=== PATIENT | male | born 1950 | race Caucasian/White ===

== ENCOUNTER 2019-06-03 13:19 | Inpatient (IN) | payer MEDICARE ==
[2019-06-03] MEDS ORDERED: Acetaminophen 325 MG Tab PO PRN (13:53)
[2019-06-03] MEDS ORDERED: Polyethylene Glycol 3350 Powder 17 GM Packet PO PRN (13:53)
[2019-06-03] MEDS ORDERED: Ondansetron 4 MG/2 ML SDV IV PRN (13:53)
[2019-06-03] MEDS ORDERED: 50% Dextrose in Water 50 ML Syringe IV PRN (13:53)
[2019-06-03] MEDS ORDERED: Glucose Gel 15 GM in 37.5 GM Tube PO PRN (13:53)
--- NOTE | 2019-06-03 14:02 | PCM.HP.2 ---
H&P History of Present Illness - General Date of Service: 06/03/19 Admit Problem/Dx: Admission Diagnosis/Problem Admission Diagnosis/Problem Viral URI/Asthma Source of Information: Patient, Family, Provider, RN Notes Reviewed History Limitations: Reports: No Limitations - History of Present Illness Initial Comments - Free Text/Narative: Mr. Guardado is a 69-year-old gentleman who was admitted as a direct admission from the clinic with shortness of breath, secondary to a viral upper respiratory tract infection with asthma exacerbation. He has not felt well over the past week with progressive increase in shortness of breath and nonproductive cough. He has had no fevers, chills, or sweats. Symptoms are actually modestly improved over the past 2 days. He does report expiratory wheezing and denies any previous history of significant pulmonary disease. During this period of time he is also experienced increase in peripheral edema. History of chronic kidney disease stage IV, review of records show an increase in creatinine from 2.6-3.4 over the past 6 months. - Related Data Allergies/Adverse Reactions: Allergies Allergy/AdvReac Type Severity Reaction Status Date / Time No Known Allergies Allergy Verified 11/02/14 09:25 Home Medications: Home Meds Hydrochlorothiazide 25 mg PO TID 11/02/14 [History] Insulin Glarg,Human.Rec.Analog [Lantus Solostar] 48 units SUBCUT BEDTIME [History] Levothyroxine 200 mcg PO DAILY 11/02/14 [History] Lisinopril 40 mg PO DAILY 11/02/14 [History] Minocycline [Minocin] 100 mg PO DAILY 11/02/14 [History] allopurinoL [Allopurinol] 300 mg PO DAILY 11/02/14 [History] Past Medical History HEENT History: Reports: Cataract, Impaired Vision Cardiovascular History: Reports: Hypertension Gastrointestinal History: Reports: Other (See Below) Other Gastrointestinal History: small bowel resection Endocrine/Metabolic History: Reports: Diabetes, Type II Oncologic (Cancer) History: Reports: Other (See Below) Other Oncologic History: benign melanoma Dermatologic History: Reports: Benign Melanoma - Infectious Disease History Infectious Disease History: Reports: Chicken Pox, Measles, Mumps - Past Surgical History HEENT Surgical History: Reports: Cataract Surgery GI Surgical History: Reports: Hernia Repair/Other Social & Family History - Tobacco Use Smoking Status *Q: Never Smoker - Caffeine Use Caffeine Use: Reports: Coffee - Recreational Drug Use Recreational Drug Use: No H&P Review of Systems - Review of Systems: Review Of Systems: See Below General: Reports: Malaise, Weakness. Denies: Fever, Chills HEENT: Reports: No Symptoms Pulmonary: Reports: Shortness of Breath, Wheezing, Cough. Denies: Pleuritic Chest Pain, Sputum, Hemoptysis Cardiovascular: Reports: Dyspnea on Exertion, Edema. Denies: Chest Pain, Palpitations, Orthopnea, PND, Lightheadedness Gastrointestinal: Reports: No Symptoms Genitourinary: Reports: No Symptoms Musculoskeletal: Reports: No Symptoms Skin: Reports: No Symptoms Psychiatric: Reports: No Symptoms Neurological: Reports: No Symptoms Hematologic/Lymphatic: Reports: No Symptoms Immunologic: Reports: No Symptoms Exam - Exam Exam: See Below - Vital Signs Weight: 221 lb - Exam Quality Assessment: DVT Prophylaxis General: Alert, Oriented, Cooperative, Mild Distress HEENT: Conjunctiva Clear, Hearing Intact, Mucosa Moist & [place], Normal Nasal Septum, Posterior Pharynx Clear, Pupils Equal Neck: Supple, Trachea Midline, +2 Carotid Pulse wo Bruit Lungs: Normal Respiratory Effort, Wheezing. No: Rales, Rhonchi, Rub Cardiovascular: Regular Rate, Regular Rhythm, Normal S1, Normal S2. No: Systolic Murmur, Diastolic Murmur GI/Abdominal Exam: Soft, Non-Tender, No Organomegaly, No Distention Back Exam: Normal Inspection, Full Range of Motion Extremities: Non-Tender, Pedal Edema Skin: Warm, Dry, Intact Neurological: Cranial Nerves Intact, Strength Equal Bilateral, Normal Speech, Normal Tone, Sensation Intact. No: Focal Deficit Neuro Extensive - Mental Status: Alert, Oriented x3, Normal Mood/Affect, Normal Cognition, Memory Intact *Q Meaningful Use (ADM) - VTE Risk Assess *Q Each Risk Factor Represents 1 Point: Obesity ( BMI > 25 kg/m2) Total Score 1 Point Risk Factors: 1 Each Risk Factor Represents 2 Points: Age 60 - 74 Years Total Score 2 Point Risk Factors: 2 Each Risk Factor Represents 3 Points: None Total Score 3 Point Risk Factors: 0 Each Risk Factor Represents 5 Points: None Total Score 5 Point Risk Factors: 0 Venous Thromboembolism Risk Factor Score *Q: 3 Problem List Initiated/Reviewed/Updated: Yes Orders Last 24hrs: Active Orders 24 hr Category Date Time Status Patient Status [ADT] Routine ADT 06/03/19 13:53 Ordered Ambulate [RC] QID Care 06/03/19 13:53 Ordered Blood Glucose Check, Bedside [RC] QIDACANDBED Care 06/03/19 13:53 Ordered Cardiac Monitoring [RC] .As Directed Care 06/03/19 13:56 Ordered Communication Order [RC] STAT Care 06/03/19 13:53 Ordered Diabetes Education [RC] Click to Edit Care 06/03/19 13:53 Ordered Height and Weight [RC] DAILY Care 06/03/19 13:53 Ordered Intake and Output [RC] QSHIFT Care 06/03/19 13:53 Ordered Notify Provider Vital Signs [RC] ASDIRECTED Care 06/03/19 13:53 Ordered Notify Provider [RC] PRN Care 06/03/19 13:53 Ordered Oxygen Therapy [RC] PRN Care 06/03/19 13:53 Ordered Up to Chair [RC] QID Care 06/03/19 13:53 Ordered VTE/DVT Education [RC] Per Unit Routine Care 06/03/19 13:53 Ordered Vital Signs [RC] Q4H Care 06/03/19 13:53 Ordered 2 Gram Sodium Diet [DIET] Diet 06/03/19 Lunch Ordered Consistent Carbohydrate Diet [DIET] Diet 06/03/19 Lunch Ordered Echo Comp wo Cont [US] Urgent Exams 06/04/19 08:00 Ordered BASIC METABOLIC PANEL,BMP [CHEM] AM Lab 06/04/19 05:11 Ordered CBC WITH AUTO DIFF [HEME] AM Lab 06/04/19 05:11 Ordered GLUCOSE POC LAB TO COLLECT [POC] QIDACANDBED Lab 06/03/19 16:30 Ordered GLUCOSE POC LAB TO COLLECT [POC] QIDACANDBED Lab 06/03/19 21:00 Ordered GLUCOSE POC LAB TO COLLECT [POC] QIDACANDBED Lab 06/04/19 07:30 Ordered GLUCOSE POC LAB TO COLLECT [POC] QIDACANDBED Lab 06/04/19 11:30 Ordered GLUCOSE POC LAB TO COLLECT [POC] QIDACANDBED Lab 06/04/19 16:30 Ordered GLUCOSE POC LAB TO COLLECT [POC] QIDACANDBED Lab 06/04/19 21:00 Ordered GLUCOSE POC LAB TO COLLECT [POC] QIDACANDBED Lab 06/05/19 07:30 Ordered GLUCOSE POC LAB TO COLLECT [POC] QIDACANDBED Lab 06/05/19 11:30 Ordered GLUCOSE POC LAB TO COLLECT [POC] QIDACANDBED Lab 06/05/19 16:30 Ordered GLUCOSE POC LAB TO COLLECT [POC] QIDACANDBED Lab 06/05/19 21:00 Ordered GLUCOSE POC LAB TO COLLECT [POC] QIDACANDBED Lab 06/06/19 07:30 Ordered GLUCOSE POC LAB TO COLLECT [POC] QIDACANDBED Lab 06/06/19 11:30 Ordered GLUCOSE POC LAB TO COLLECT [POC] QIDACANDBED Lab 06/06/19 16:30 Ordered GLUCOSE POC LAB TO COLLECT [POC] QIDACANDBED Lab 06/06/19 21:00 Ordered GLUCOSE POC LAB TO COLLECT [POC] QIDACANDBED Lab 06/07/19 07:30 Ordered GLUCOSE POC LAB TO COLLECT [POC] QIDACANDBED Lab 06/07/19 11:30 Ordered GLUCOSE POC LAB TO COLLECT [POC] QIDACANDBED Lab 06/07/19 16:30 Ordered GLUCOSE POC LAB TO COLLECT [POC] QIDACANDBED Lab 06/07/19 21:00 Ordered GLUCOSE POC LAB TO COLLECT [POC] QIDACANDBED Lab 06/08/19 07:30 Ordered GLUCOSE POC LAB TO COLLECT [POC] QIDACANDBED Lab 06/08/19 11:30 Ordered MAGNESIUM [CHEM] AM Lab 06/04/19 05:11 Ordered Acetaminophen [Tylenol] Med 06/03/19 13:53 Ordered 650 mg PO Q4H PRN Bumetanide [Bumex] Med 06/03/19 13:58 Once 4 mg IVPUSH ONETIME ONE Dextrose 50% in Water Med 06/03/19 13:53 Ordered 50 ml IV ONETIME PRN Dextrose [Glutose 15] Med 06/03/19 13:53 Ordered 15 gm PO ONETIME PRN Enoxaparin [Lovenox] Med 06/03/19 14:00 Ordered 30 mg SUBCUT DAILY Insulin Lispro [HumaLOG] Med 06/03/19 17:00 Ordered See Protocol SUBCUT QIDACANDBED Ondansetron [Zofran] Med 06/03/19 13:53 Ordered 4 mg IV Q4H PRN Polyethylene Glycol 3350 [MiraLAX] Med 06/03/19 13:53 Ordered 17 gm PO DAILY PRN Sodium Chloride 0.9% [Saline Flush] Med 06/03/19 13:53 Ordered 10 ml FLUSH ASDIRECTED PRN Saline Lock Insert [OM.PC] Routine Oth 06/03/19 13:53 Ordered Resuscitation Status Routine Resus Stat 06/03/19 13:53 Ordered Medication Orders Acetaminophen (Tylenol) 650 mg PO Q4H PRN PRN Reason: Pain (Mild 1-3)/fever Bumetanide (Bumex) 4 mg IVPUSH ONETIME ONE Stop: 06/03/19 13:59 Dextrose (Glutose 15) 15 gm PO ONETIME PRN PRN Reason: Hypoglycemia Dextrose/Water (Dextrose 50% In Water) 50 ml IV ONETIME PRN PRN Reason: Hypoglycemia Enoxaparin Sodium (Lovenox) 30 mg SUBCUT DAILY INNA Insulin Human Lispro (Humalog) 0 unit SUBCUT QIDACANDBED INNA; Protocol Ondansetron HCl (Zofran) 4 mg IV Q4H PRN PRN Reason: Nausea/Vomiting Polyethylene Glycol (Miralax) 17 gm PO DAILY PRN PRN Reason: Constipation Sodium Chloride (Saline Flush) 10 ml FLUSH ASDIRECTED PRN PRN Reason: Keep Vein Open Assessment/Plan Comment:: ASSESSMENT AND PLAN VIRAL UPPER RESPIRATORY TRACT INFECTION/ASTHMA EXACERBATION-previous history of reactive airway disease. 1 week history of progressive shortness of breath associated with dry nonproductive cough. Noted to have significant expiratory wheezing on examination. Indication for antibiotic therapy at the present time. -Supplemental oxygen as needed -Nebulized albuterol and DuoNebs -Solu-Medrol 40 mg every 8 hours PERIPHERAL EDEMA-likely related to his chronic kidney disease as well as increased sodium intake -2 g sodium diet -Bumex 4 mg IV now, reassess in a.m. CHRONIC KIDNEY DISEASE STAGE IV-did have an increase in creatinine over the past 6 months, current GFR is 19 -Closely monitor urine output and renal function during hospitalization TYPE 2 DIABETES MELLITUS -Continue usual dose of long-acting insulin -4 times daily glucometers -Moderate dose sliding scale Humalog MAINTENANCE ISSUES -DVT prophylaxis; Lovenox 30 mg subcu daily -GI prophylaxis; not indicated -Paige catheter; not indicated -Nutrition; 2 g sodium diet, consistent carb diet -Nicotine dependence; not required CODE STATUS-FULL CODE ADMISSION STATUS-patient will be admitted to inpatient status, expect at least a 2 night hospital stay for evaluation and management of problems as outlined above. At the time of this admission I do not reasonably expected evaluation and management of this problem will require more than a 96 hour hospital stay. DISPOSITION-anticipate discharge to home after the hospital stay. PRIMARY CARE PROVIDER-Dr. Caballero - Mortality Measure Prognosis:: Good
[2019-06-03] MEDS: Sodium Chloride 0.9% 10 ML Syringe FLUSH PRN ×2 (14:17→16:05)
[2019-06-03] MEDS: Enoxaparin 30 MG/0.3 ML Syringe SUBCUT SCH (14:19)
[2019-06-03] MEDS ORDERED: Bumetanide 1 MG/4 ML MDV IVPUSH ONE (14:30)
[2019-06-03] MEDS ORDERED: Albuterol 0.083% 2.5 MG/3 ML Neb Soln NEB PRN (14:46)
[2019-06-03] MEDS: Albuterol/Ipratropium 3.0-0.5 MG/3 ML Neb Soln NEB SCH ×2 (15:13→20:12)
[2019-06-03] MEDS: cloNIDine 0.1 MG Tab PO SCH ×2 (16:01→20:06)
[2019-06-03] MEDS: methylPREDNISolone Sodium Succinate 40 MG/1 ML SDV IVPUSH SCH ×2 (16:01→23:44)
[2019-06-03] MEDS: Insulin Lispro 100 Unit/ML 3 ML KwikPen SUBCUT SCH ×3 (17:31→20:03)
[2019-06-03] MEDS: Insulin Glargine,Human Rec. Analog 100 Units/ML 3 ML Pen SUBCUT SCH (20:02)
[2019-06-03] MEDS: hydrALAZINE 25 MG Tab PO SCH (20:05)
[2019-06-03] MEDS: DULoxetine 30 MG Cap PO SCH (20:06)
[2019-06-03] MEDS: Pravastatin 20 MG Tab PO SCH (20:08)
[2019-06-03] MEDS ORDERED: Hydrochlorothiazide 25 MG Tab PO SCH (21:00)
[2019-06-04] MEDS: Albuterol/Ipratropium 3.0-0.5 MG/3 ML Neb Soln NEB SCH ×4 (06:57→20:47)
[2019-06-04] MEDS: Insulin Lispro 100 Unit/ML 3 ML KwikPen SUBCUT SCH ×7 (08:18→21:00)
[2019-06-04] MEDS: Levothyroxine 100 MCG Tab PO SCH (08:21)
[2019-06-04] MEDS: methylPREDNISolone Sodium Succinate 40 MG/1 ML SDV IVPUSH SCH ×2 (08:23→16:53)
[2019-06-04] MEDS: hydrALAZINE 25 MG Tab PO SCH ×3 (08:24→20:46)
[2019-06-04] MEDS: cloNIDine 0.1 MG Tab PO SCH ×2 (08:25→20:47)
[2019-06-04] MEDS: Metoprolol Succinate 50 MG Tab.ER PO SCH (08:25)
[2019-06-04] MEDS: Verapamil 120 MG Tab.ER PO SCH (08:26)
[2019-06-04] MEDS: Aspirin 81 MG Tab.Chew PO SCH (08:26)
[2019-06-04] MEDS ORDERED: Allopurinol 100 MG Tab PO SCH (09:00)
[2019-06-04] MEDS ORDERED: Lisinopril 20 MG Tab PO SCH (09:00)
--- NOTE | 2019-06-04 10:30 | PCM.PN ---
- General Info Date of Service: 06/04/19 Subjective Update: Mr. Guardado has improved since admission with less shortness of breath and cough. Peripheral edema is also improved with diuresis and his renal function has remained stable. - Review of Systems General: Reports: Weakness. Denies: Fever, Chills Pulmonary: Reports: Shortness of Breath, Cough, Wheezing. Denies: Pleuritic Chest Pain, Sputum, Hemoptysis Cardiovascular: Reports: Dyspnea on Exertion, Edema. Denies: Chest Pain, Palpitations, Orthopnea, PND Gastrointestinal: Reports: No Symptoms - Patient Data Vitals - Most Recent: Last Vital Signs Temp 97.5 F 06/04/19 08:00 Pulse 76 06/04/19 08:26 Resp 16 06/04/19 08:00 BP 166/67 H 06/04/19 08:26 Pulse Ox 100 06/04/19 08:00 Weight - Most Recent: 221 lb I&O - Last 24 Hours: Intake & Output 06/03/19 06/04/19 06/04/19 22:59 06:59 14:59 Intake Total 610 Output Total 1700 Balance -1090 Lab Results Last 24 Hours: Laboratory Results - last 24 hr 06/04/19 06/04/19 Range/Units 06:02 06:02 WBC 6.6 (4.5-11.0) K/uL RBC 3.22 L (4.30-5.90) M/uL Hgb 9.4 L (12.0-15.0) g/dL Hct 28.3 L (40.0-54.0) % MCV 88 (80-98) fL MCH 29 (27-31) pg MCHC 33 (32-36) % Plt Count 360 (150-400) K/uL Neut % (Auto) 91 H (36-66) % Lymph % (Auto) 8 L (24-44) % [place] % (Auto) 1 L (2-6) % Eos % (Auto) 0 L (2-4) % Baso % (Auto) 0 (0-1) % Sodium 132 L (140-148) mmol/L Potassium 4.5 (3.6-5.2) mmol/L Chloride 95 L (100-108) mmol/L Carbon Dioxide 26 (21-32) mmol/L Anion Gap 15.5 H (5.0-14.0) mmol/L BUN 74 H (7-18) mg/dL Creatinine 3.5 H (0.8-1.3) mg/dL Est Cr Clr Drug Dosing 21.15 mL/min Estimated GFR (MDRD) 18 L (>60) Glucose 314 H (74-106) mg/dL Calcium 8.5 (8.5-10.1) mg/dL Magnesium 2.0 (1.8-2.4) mg/dL Med Orders - Current: Current Medications Acetaminophen (Tylenol) 650 mg PO Q4H PRN PRN Reason: Pain (Mild 1-3)/fever Albuterol (Proventil Neb Soln) 2.5 mg NEB Q4H PRN PRN Reason: Dyspnea Albuterol/Ipratropium (Duoneb 3.0-0.5 Mg/3 Ml) 3 ml NEB QIDRT [facility] Last Admin: 06/04/19 06:57 Dose: 3 ml Amitriptyline HCl (Elavil) 50 mg PO BEDTIME [facility] Last Admin: 06/03/19 20:08 Dose: 50 mg Aspirin (Aspirin) 81 mg PO DAILY [facility] Last Admin: 06/04/19 08:26 Dose: 81 mg Bumetanide (Bumex) 4 mg IVPUSH ONETIME ONE Stop: 06/04/19 10:27 Clonidine HCl (Catapres) 0.2 mg PO BID [facility] Last Admin: 06/04/19 08:25 Dose: 0.2 mg Dextrose (Glutose 15) 15 gm PO ONETIME PRN PRN Reason: Hypoglycemia Dextrose/Water (Dextrose 50% In Water) 50 ml IV ONETIME PRN PRN Reason: Hypoglycemia Duloxetine HCl (Cymbalta) 30 mg PO BEDTIME [facility] Last Admin: 06/03/19 20:06 Dose: 30 mg Enoxaparin Sodium (Lovenox) 30 mg SUBCUT Q24H [facility] Last Admin: 06/03/19 14:19 Dose: 30 mg Hydralazine HCl (Apresoline) 100 mg PO TID [facility] Last Admin: 06/04/19 08:24 Dose: 100 mg Insulin Glargine (Lantus Solostar) 48 units SUBCUT BEDTIME [facility] Last Admin: 06/03/19 20:02 Dose: 48 unit Insulin Human Lispro (Humalog) 0 unit SUBCUT QIDACANDBED [facility]; Protocol Last Admin: 06/04/19 08:19 Dose: 8 units Insulin Human Lispro (Humalog) 12 unit SUBCUT BIDAC [facility] Last Admin: 06/04/19 08:18 Dose: 12 units Insulin Human Lispro (Humalog) 15 unit SUBCUT DAILY@1100 [facility] Levothyroxine Sodium (Synthroid) 200 mcg PO DAILY@0730 [facility] Last Admin: 06/04/19 08:21 Dose: 200 mcg Methylprednisolone Sodium Succinate (Solu-Medrol) 40 mg IVPUSH Q8H [facility] Last Admin: 06/04/19 08:23 Dose: 40 mg Metoprolol Succinate (Toprol Xl) 200 mg PO DAILY [facility] Last Admin: 06/04/19 08:25 Dose: 200 mg Ondansetron HCl (Zofran) 4 mg IV Q4H PRN PRN Reason: Nausea/Vomiting Polyethylene Glycol (Miralax) 17 gm PO DAILY PRN PRN Reason: Constipation Pravastatin Sodium (Pravachol) 40 mg PO BEDTIME [facility] Last Admin: 06/03/19 20:08 Dose: 40 mg Sodium Chloride (Saline Flush) 10 ml FLUSH ASDIRECTED PRN PRN Reason: Keep Vein Open Last Admin: 06/03/19 16:05 Dose: 10 ml Verapamil HCl (Calan Sr) 240 mg PO DAILY [facility] Last Admin: 06/04/19 08:26 Dose: 240 mg Discontinued Medications Allopurinol (Zyloprim) 100 mg PO DAILY [facility] Bumetanide (Bumex) 4 mg IVPUSH ONETIME ONE Stop: 06/03/19 14:31 Last Admin: 06/03/19 14:19 Dose: 4 mg Hydrochlorothiazide (Hydrochlorothiazide) 25 mg PO TID [facility] Lisinopril (Prinivil) 40 mg PO DAILY [facility] - Exam Quality Assessment: DVT Prophylaxis General: Alert, Oriented, Cooperative, Mild Distress Lungs: Decreased Breath Sounds, Wheezing. No: Rales, Rhonchi, Rub Cardiovascular: Regular Rate, Regular Rhythm, No Murmurs GI/Abdominal Exam: Soft, Non-Tender, No Organomegaly, No Distention Extremities: Non-Tender, Pedal Edema Sepsis Event Note - Evaluation Sepsis Screening Result: No Definite Risk - Focused Exam Vital Signs: Vital Signs Temp Pulse Pulse Resp BP BP Pulse Ox 06/04/19 08:26 76 166/67 H 06/04/19 08:25 76 166/67 H 06/04/19 08:24 166/67 H 06/04/19 08:00 97.5 F 82 16 157/65 H 100 06/04/19 06:58 64 06/04/19 06:00 70 11 L 168/70 H 100 06/04/19 05:00 62 11 L 152/62 H 95 06/04/19 04:00 63 12 143/64 H 93 L 06/04/19 03:00 61 12 140/63 93 L 06/04/19 02:00 62 10 L 137/61 94 L 06/04/19 00:59 65 12 138/64 93 L 06/04/19 00:00 63 13 133/59 L 93 L 06/03/19 23:00 96.6 F 63 12 135/57 L 92 L Date Exam was Performed: 06/04/19 Time Exam was Performed: 10:27 - Problem List Review Problem List Initiated/Reviewed/Updated: Yes - My Orders Last 24 Hours: My Active Orders 06/03/19 13:53 Patient Status [ADT] Routine Ambulate [RC] QID Blood Glucose Check, Bedside [RC] QIDACANDBED Communication Order [RC] STAT Diabetes Education [RC] Click to Edit Height and Weight [RC] DAILY Intake and Output [RC] QSHIFT Notify Provider Vital Signs [RC] ASDIRECTED Notify Provider [RC] PRN Oxygen Therapy [RC] PRN Up to Chair [RC] QID VTE/DVT Education [RC] Per Unit Routine Vital Signs [RC] Q4H Acetaminophen [Tylenol] 650 mg PO Q4H PRN Dextrose 50% in Water 50 ml IV ONETIME PRN Dextrose [Glutose 15] 15 gm PO ONETIME PRN Ondansetron [Zofran] 4 mg IV Q4H PRN Polyethylene Glycol 3350 [MiraLAX] 17 gm PO DAILY PRN Sodium Chloride 0.9% [Saline Flush] 10 ml FLUSH ASDIRECTED PRN Saline Lock Insert [OM.PC] Routine Resuscitation Status Routine 06/03/19 13:56 Cardiac Monitoring [RC] Q6H 06/03/19 14:00 Enoxaparin [Lovenox] 30 mg SUBCUT Q24H 06/03/19 14:46 RT Aerosol Therapy [RC] ASDIRECTED Albuterol [Proventil Neb Soln] 2.5 mg NEB Q4H PRN 06/03/19 15:00 Albuterol/Ipratropium [DuoNeb 3.0-0.5 MG/3 ML] 3 ml NEB QIDRT 06/03/19 16:00 cloNIDine [Catapres] 0.2 mg PO BID methylPREDNISolone Sod Succ [Solu-MEDROL] 40 mg IVPUSH Q8H 06/03/19 17:00 Insulin Lispro [HumaLOG] See Protocol SUBCUT QIDACANDBED 06/03/19 17:30 Insulin Lispro [HumaLOG] 12 unit SUBCUT BIDAC 06/03/19 21:00 Amitriptyline [Elavil] 50 mg PO BEDTIME DULoxetine [Cymbalta] 30 mg PO BEDTIME Insulin Glarg,Human.Rec.Analog [LantUS Solostar] 48 units SUBCUT BEDTIME Pravastatin [Pravachol] 40 mg PO BEDTIME hydrALAZINE [Apresoline] 100 mg PO TID 06/03/19 Lunch 2 Gram Sodium Diet [DIET] Consistent Carbohydrate Diet [DIET] 06/04/19 07:30 Levothyroxine [Synthroid] 200 mcg PO DAILY@0730 06/04/19 08:00 Echo Comp wo Cont [US] Urgent 06/04/19 09:00 Aspirin 81 mg PO DAILY Metoprolol Succinate [Toprol XL] 200 mg PO DAILY Verapamil [Calan SR] 240 mg PO DAILY 06/04/19 10:26 Bumetanide [Bumex] 4 mg IVPUSH ONETIME ONE 06/04/19 11:00 Insulin Lispro [HumaLOG] 15 unit SUBCUT DAILY@1100 06/05/19 05:00 BASIC METABOLIC PANEL,BMP [CHEM] Timed 06/05/19 07:30 GLUCOSE POC LAB TO COLLECT [POC] QIDACANDBED 06/05/19 11:30 GLUCOSE POC LAB TO COLLECT [POC] QIDACANDBED 06/05/19 16:30 GLUCOSE POC LAB TO COLLECT [POC] QIDACANDBED 06/05/19 21:00 GLUCOSE POC LAB TO COLLECT [POC] QIDACANDBED 06/06/19 07:30 GLUCOSE POC LAB TO COLLECT [POC] QIDACANDBED 06/06/19 11:30 GLUCOSE POC LAB TO COLLECT [POC] QIDACANDBED 06/06/19 16:30 GLUCOSE POC LAB TO COLLECT [POC] QIDACANDBED 06/06/19 21:00 GLUCOSE POC LAB TO COLLECT [POC] QIDACANDBED 06/07/19 07:30 GLUCOSE POC LAB TO COLLECT [POC] QIDACANDBED 06/07/19 11:30 GLUCOSE POC LAB TO COLLECT [POC] QIDACANDBED 06/07/19 16:30 GLUCOSE POC LAB TO COLLECT [POC] QIDACANDBED 06/07/19 21:00 GLUCOSE POC LAB TO COLLECT [POC] QIDACANDBED 06/08/19 07:30 GLUCOSE POC LAB TO COLLECT [POC] QIDACANDBED 06/08/19 11:30 GLUCOSE POC LAB TO COLLECT [POC] QIDACANDBED - Plan Plan:: ASSESSMENT AND PLAN VIRAL UPPER RESPIRATORY TRACT INFECTION/ASTHMA EXACERBATION-no previous history of reactive airway disease. 1 week history of progressive shortness of breath associated with dry nonproductive cough. Noted to have significant expiratory wheezing on examination. He has remained afebrile, shortness of breath and cough have improved with current management -Supplemental oxygen as needed -Nebulized albuterol and DuoNebs -Solu-Medrol 40 mg every 8 hours PERIPHERAL EDEMA-likely related to his chronic kidney disease as well as increased sodium intake. Edema has improved with diuresis. -2 g sodium diet -Bumex 4 mg IV now, reassess in a.m. CHRONIC KIDNEY DISEASE STAGE IV-did have an increase in creatinine over the past 6 months, current GFR is 19. Renal function has been stable with diuresis -Closely monitor urine output and renal function during hospitalization TYPE 2 DIABETES MELLITUS-glucose elevated from baseline, likely secondary to current glucocorticoid therapy. -Continue usual dose of long-acting insulin -4 times daily glucometers -Moderate dose sliding scale Humalog MAINTENANCE ISSUES -DVT prophylaxis; Lovenox 30 mg subcu daily -GI prophylaxis; not indicated -Paige catheter; not indicated -Nutrition; 2 g sodium diet, consistent carb diet -Nicotine dependence; not required CODE STATUS-FULL CODE ADMISSION STATUS-patient will be admitted to inpatient status, expect at least a 2 night hospital stay for evaluation and management of problems as outlined above. At the time of this admission I do not reasonably expected evaluation and management of this problem will require more than a 96 hour hospital stay. DISPOSITION-anticipate discharge to home after the hospital stay. PRIMARY CARE PROVIDER-Dr. Caballero
[2019-06-04] MEDS ORDERED: Bumetanide 2.5 MG/10 ML MDV IVPUSH ONE (11:00)
[2019-06-04] MEDS: Enoxaparin 30 MG/0.3 ML Syringe SUBCUT SCH (14:36)
[2019-06-04] MEDS: DULoxetine 30 MG Cap PO SCH (20:47)
[2019-06-04] MEDS: Pravastatin 20 MG Tab PO SCH (20:48)
[2019-06-04] MEDS: Insulin Glargine,Human Rec. Analog 100 Units/ML 3 ML Pen SUBCUT SCH (20:58)
[2019-06-05] MEDS: methylPREDNISolone Sodium Succinate 40 MG/1 ML SDV IVPUSH SCH ×3 (01:35→08:08)
[2019-06-05] MEDS: Albuterol/Ipratropium 3.0-0.5 MG/3 ML Neb Soln NEB SCH ×2 (07:03→10:49)
[2019-06-05 08:00] VITALS: BP 181/72
[2019-06-05] MEDS: Verapamil 120 MG Tab.ER PO SCH (08:07)
[2019-06-05] MEDS: cloNIDine 0.1 MG Tab PO SCH (08:07)
[2019-06-05] MEDS: Levothyroxine 100 MCG Tab PO SCH (08:08)
[2019-06-05] MEDS: Insulin Lispro 100 Unit/ML 3 ML KwikPen SUBCUT SCH ×4 (08:11→11:55)
[2019-06-05] MEDS: hydrALAZINE 25 MG Tab PO SCH (08:15)
[2019-06-05] MEDS: Aspirin 81 MG Tab.Chew PO SCH (08:16)
[2019-06-05] MEDS: Metoprolol Succinate 50 MG Tab.ER PO SCH (08:17)
[2019-06-05 10:50] VITALS: PULSE 88
--- NOTE | 2019-06-05 11:53 | PCM.DCSUM1 ---
Discharge Summary - Hospital Course Brief History: Mr. Guardado is a 69-year-old gentleman who was admitted through the emergency department with increased shortness of breath and peripheral edema secondary to a viral upper respiratory tract infection and asthma exacerbation. - Discharge Data Discharge Date: 06/05/19 Discharge Disposition: Home, Self-Care 01 Condition: Fair - Referral to Home Health Primary Care Physician: Prince Caballero MD - Discharge Diagnosis/Problem(s) (1) URI, acute SNOMED Code(s): 15125137 ICD Code: J06.9 - ACUTE UPPER RESPIRATORY INFECTION, UNSPECIFIED Status: Acute Current Visit: No (2) CKD (chronic kidney disease), stage IV SNOMED Code(s): 690747932 ICD Code: N18.4 - CHRONIC KIDNEY DISEASE, STAGE 4 (SEVERE) Status: Chronic Current Visit: No (3) Type 2 diabetes mellitus SNOMED Code(s): 86532557 ICD Code: E11.9 - TYPE 2 DIABETES MELLITUS WITHOUT COMPLICATIONS Status: Chronic Current Visit: No (4) Sleep apnea SNOMED Code(s): 82862034 ICD Code: G47.30 - SLEEP APNEA, UNSPECIFIED Status: Acute Current Visit: Yes (5) Asthma SNOMED Code(s): 858827814 ICD Code: J45.909 - UNSPECIFIED ASTHMA, UNCOMPLICATED Status: Acute Current Visit: Yes (6) Peripheral edema SNOMED Code(s): 783680944 ICD Code: R60.9 - EDEMA, UNSPECIFIED Status: Acute Current Visit: Yes - Patient Summary/Data Hospital Course: Mr. Guardado is a 69-year-old gentleman who was admitted as a direct admission from the clinic with shortness of breath, secondary to a viral upper respiratory tract infection with asthma exacerbation. He has not felt well over the past week with progressive increase in shortness of breath and nonproductive cough. He has had no fevers, chills, or sweats. Symptoms are actually modestly improved over the past 2 days. He does report expiratory wheezing and denies any previous history of significant pulmonary disease. During this period of time he is also experienced increase in peripheral edema. History of chronic kidney disease stage IV, review of records show an increase in creatinine from 2.6-3.4 over the past 6 months. On admission he was given IV Bumex for management of his increased peripheral edema. He was started on nebulizer therapy with scheduled duo nebs and as needed albuterol nebs. Solu-Medrol 40 mg IV every 8 hours was started and continued throughout his hospital stay. Renal function was monitored daily and remained stable with diuretic therapy. By the time of discharge his peripheral edema had improved significantly. Respiratory status also improved and by the time of discharge he was off of supplemental oxygen. Glucose levels were monitored and he was treated with his usual long and short acting insulin. In addition he was. Treated with sliding scale Humalog insulin. Glucose levels were elevated and thought to be secondary to current glucocorticoid therapy. He was not treated with IV antibiotic therapy as there was no evidence of underlying bacterial infection. Activity will be as tolerated and he will be on a consistent carb 2 g sodium diet. Follow-up appointment will be scheduled with Dr. Caballero within 1 week. He will be discharged on prednisone 40 mg daily for an additional 3 days. Consider outpatient sleep study for evaluation of probable sleep apnea as well as nephrology consult concerning his stage IV chronic kidney disease. - Patient Instructions Diet: Low Sodium, Diabetic Diet Activity: As Tolerated Other/Special Instructions: Please schedule follow-up appointment with primary care provider within 1 week. - Discharge Plan *PRESCRIPTION DRUG MONITORING PROGRAM REVIEWED*: Not Applicable *COPY OF PRESCRIPTION DRUG MONITORING REPORT IN PATIENT SHELIA: Not Applicable Prescriptions/Med Rec: predniSONE [Prednisone] 40 mg PO DAILY #6 tablet Home Medications: Home Meds Insulin Glarg,Human.Rec.Analog [Lantus Solostar] 48 units SUBCUT BEDTIME [History] Levothyroxine 200 mcg PO DAILY 11/02/14 [History] Lisinopril 40 mg PO DAILY 11/02/14 [History] Minocycline [Minocin] 100 mg PO DAILY 11/02/14 [History] Amitriptyline [Elavil] 50 mg PO BEDTIME 06/03/19 [History] Aspirin 81 mg PO DAILY 06/03/19 [History] DULoxetine [Cymbalta] 30 mg PO BEDTIME 06/03/19 [History] Furosemide 80 mg PO DAILY 06/03/19 [History] Insulin Aspart [NovoLOG] 12 units SUBCUT ACBREAKFAST 06/03/19 [History] Insulin Aspart [NovoLOG] 12 units SUBCUT WITHDINNER 06/03/19 [History] Insulin Aspart [NovoLOG] 15 units SUBCUT WITHLUNCH 06/03/19 [History] Metoprolol Succinate [Toprol XL] 200 mg PO DAILY 06/03/19 [History] Pravastatin [Pravachol] 40 mg PO BEDTIME 06/03/19 [History] Verapamil HCl [Verapamil ER] 240 mg PO DAILY 06/03/19 [History] cloNIDine [Catapres] 0.2 mg PO Q12HR 06/03/19 [History] hydrALAZINE [Apresoline] 100 mg PO TID 06/03/19 [History] metOLazone [Metolazone] 2.5 mg PO ASDIRECTED 06/03/19 [History] predniSONE [Prednisone] 40 mg PO DAILY #6 tablet 06/05/19 [Rx] - Discharge Summary/Plan Comment DC Time >30 min.: No - Patient Data Vitals - Most Recent: Last Vital Signs Temp 98.2 F 06/05/19 07:00 Pulse 88 06/05/19 10:49 Resp 18 06/05/19 07:00 BP 181/72 H 06/05/19 08:17 Pulse Ox 93 L 06/05/19 07:00 Weight - Most Recent: 221 lb I&O - Last 24 hours: Intake & Output 06/04/19 06/05/19 06/05/19 22:59 06:59 14:59 Intake Total 800 620 Output Total 800 1125 1350 Balance 0 -1125 -730 Lab Results - Last 24 hrs: Laboratory Results - last 24 hr 06/05/19 Range/Units 04:20 Sodium 130 L (140-148) mmol/L Potassium 4.4 (3.6-5.2) mmol/L Chloride 93 L (100-108) mmol/L Carbon Dioxide 26 (21-32) mmol/L Anion Gap 15.4 H (5.0-14.0) mmol/L BUN 86 H* (7-18) mg/dL Creatinine 3.5 H (0.8-1.3) mg/dL Est Cr Clr Drug Dosing 21.15 mL/min Estimated GFR (MDRD) 18 L (>60) Glucose 324 H (74-106) mg/dL Calcium 8.5 (8.5-10.1) mg/dL Med Orders - Current: Current Medications Acetaminophen (Tylenol) 650 mg PO Q4H PRN PRN Reason: Pain (Mild 1-3)/fever Albuterol (Proventil Neb Soln) 2.5 mg NEB Q4H PRN PRN Reason: Dyspnea Albuterol/Ipratropium (Duoneb 3.0-0.5 Mg/3 Ml) 3 ml NEB QIDRT [facility] Last Admin: 06/05/19 10:49 Dose: 3 ml Amitriptyline HCl (Elavil) 50 mg PO BEDTIME [facility] Last Admin: 06/04/19 20:48 Dose: 50 mg Aspirin (Aspirin) 81 mg PO DAILY [facility] Last Admin: 06/05/19 08:16 Dose: 81 mg Clonidine HCl (Catapres) 0.2 mg PO BID [facility] Last Admin: 06/05/19 08:07 Dose: 0.2 mg Dextrose (Glutose 15) 15 gm PO ONETIME PRN PRN Reason: Hypoglycemia Dextrose/Water (Dextrose 50% In Water) 50 ml IV ONETIME PRN PRN Reason: Hypoglycemia Duloxetine HCl (Cymbalta) 30 mg PO BEDTIME [facility] Last Admin: 06/04/19 20:47 Dose: 30 mg Enoxaparin Sodium (Lovenox) 30 mg SUBCUT Q24H [facility] Last Admin: 06/04/19 14:36 Dose: 30 mg Hydralazine HCl (Apresoline) 100 mg PO TID [facility] Last Admin: 06/05/19 08:15 Dose: 100 mg Insulin Glargine (Lantus Solostar) 48 units SUBCUT BEDTIME [facility] Last Admin: 06/04/19 20:58 Dose: 48 unit Insulin Human Lispro (Humalog) 0 unit SUBCUT QIDACANDBED [facility]; Protocol Last Admin: 06/05/19 08:11 Dose: 8 units Insulin Human Lispro (Humalog) 12 unit SUBCUT BIDAC [facility] Last Admin: 06/05/19 08:13 Dose: 12 units Insulin Human Lispro (Humalog) 15 unit SUBCUT DAILY@1100 [facility] Last Admin: 06/04/19 11:12 Dose: 15 units Levothyroxine Sodium (Synthroid) 200 mcg PO DAILY@0730 [facility] Last Admin: 06/05/19 08:08 Dose: 200 mcg Methylprednisolone Sodium Succinate (Solu-Medrol) 40 mg IVPUSH Q8H [facility] Last Admin: 06/05/19 08:08 Dose: 40 mg Metoprolol Succinate (Toprol Xl) 200 mg PO DAILY [facility] Last Admin: 06/05/19 08:17 Dose: 200 mg Ondansetron HCl (Zofran) 4 mg IV Q4H PRN PRN Reason: Nausea/Vomiting Polyethylene Glycol (Miralax) 17 gm PO DAILY PRN PRN Reason: Constipation Pravastatin Sodium (Pravachol) 40 mg PO BEDTIME [facility] Last Admin: 06/04/19 20:48 Dose: 40 mg Sodium Chloride (Saline Flush) 10 ml FLUSH ASDIRECTED PRN PRN Reason: Keep Vein Open Last Admin: 06/03/19 16:05 Dose: 10 ml Verapamil HCl (Calan Sr) 240 mg PO DAILY [facility] Last Admin: 06/05/19 08:07 Dose: 240 mg Discontinued Medications Allopurinol (Zyloprim) 100 mg PO DAILY [facility] Bumetanide (Bumex) 4 mg IVPUSH ONETIME ONE Stop: 06/03/19 14:31 Last Admin: 06/03/19 14:19 Dose: 4 mg Bumetanide (Bumex) 4 mg IVPUSH ONETIME ONE Stop: 06/04/19 11:01 Last Admin: 06/04/19 11:11 Dose: 4 mg Hydrochlorothiazide (Hydrochlorothiazide) 25 mg PO TID [facility] Lisinopril (Prinivil) 40 mg PO DAILY [facility] - Exam Quality Assessment: Reports: DVT Prophylaxis General: Reports: Alert, Oriented, Cooperative, Mild Distress Lungs: Reports: Decreased Breath Sounds, Wheezing. Denies: Crackles, Rales, Rhonchi, Rub Cardiovascular: Reports: Regular Rate, Regular Rhythm, No Murmurs GI/Abdominal Exam: Soft, Non-Tender, No Organomegaly, No Distention Extremities: Non-Tender, Pedal Edema
== END 2019-06-05 12:30 | disposition home or self-care (01) | DRG 202 ==
LOC: JP.ICU 13:19 → JP.MS 06-04 18:51
PROVIDERS: ADMIT Hospitalist; ATTEND Hospitalist
DX: J45.901 Unspecified asthma with (acute) exacerbation (principal); N18.4 Chronic kidney disease, stage 4 (severe); J06.9 Acute upper respiratory infection, unspecified; E11.22 Type 2 diabetes mellitus with diabetic chronic kidney disease; I12.9 Hypertensive chronic kidney disease with stage 1 through stage 4 chronic kidney disease, or unspecified chronic kidney disease; Z98.49 Cataract extraction status, unspecified eye; Z79.4 Long term (current) use of insulin; Z79.899 Other long term (current) drug therapy
CPT/HCPCS: 36415; 80048; 82962; 83735; 85025; 93306; 94640; 94667; 94668; A9270-GY; J1650; J1815; J1815-GY; J2920; J3490; J7620-GY

== ENCOUNTER 2019-09-18 16:59 | Emergency (ER) | payer MEDICARE ==
[2019-09-18] MEDS ORDERED: Sodium Chloride 0.9% 10 ML Syringe FLUSH PRN (18:10)
--- NOTE | 2019-09-18 18:14 | EDM.PDOC ---
ED HPI GENERAL MEDICAL PROBLEM - General Chief Complaint: Neurological Problem Stated Complaint: DIZZY SPELL Time Seen by Provider: 09/18/19 18:02 Source of Information: Reports: Patient, RN Notes Reviewed History Limitations: Reports: No Limitations - History of Present Illness INITIAL COMMENTS - FREE TEXT/NARRATIVE: 69-year-old gentleman presents emergency department today complaint of dizziness , he states he was outside doing some yard work today sudden onset of dizziness felt like he was going to pass out he was able to check his blood pressure systolic is 77 and heart rate around 45. He is on extensive cardiac medications has had recent adjustment in his medications has had this problem in the past - Related Data Allergies Allergy/AdvReac Type Severity Reaction Status Date / Time Penicillins Allergy Hives Verified 09/18/19 17:27 Home Meds: Home Meds Insulin Glarg,Human.Rec.Analog [Lantus Solostar] 125 units SUBCUT BEDTIME [History] Levothyroxine 200 mcg PO DAILY 11/02/14 [History] Lisinopril 40 mg PO DAILY 11/02/14 [History] Minocycline [Minocin] 100 mg PO DAILY 11/02/14 [History] Amitriptyline [Elavil] 50 mg PO BEDTIME 06/03/19 [History] Aspirin 81 mg PO DAILY 06/03/19 [History] DULoxetine [Cymbalta] 30 mg PO BEDTIME 06/03/19 [History] Furosemide 80 mg PO DAILY 06/03/19 [History] Insulin Aspart [NovoLOG] 8 units SUBCUT WITHDINNER 06/03/19 [History] Insulin Aspart [NovoLOG] 10 units SUBCUT ACBREAKFAST 06/03/19 [History] Insulin Aspart [NovoLOG] 10 units SUBCUT WITHLUNCH 06/03/19 [History] Metoprolol Succinate [Toprol XL] 200 mg PO DAILY 06/03/19 [History] Pravastatin [Pravachol] 40 mg PO BEDTIME 06/03/19 [History] Verapamil HCl [Verapamil ER] 240 mg PO DAILY 06/03/19 [History] cloNIDine [Catapres] 0.2 mg PO Q12HR 06/03/19 [History] hydrALAZINE [Apresoline] 100 mg PO TID 06/03/19 [History] metOLazone [Metolazone] 2.5 mg PO ASDIRECTED 06/03/19 [History] Past Medical History HEENT History: Reports: Cataract, Impaired Vision Cardiovascular History: Reports: High Cholesterol, Hypertension Respiratory History: Reports: Sleep Apnea Other Respiratory History: cpap Gastrointestinal History: Reports: Other (See Below) Other Gastrointestinal History: small bowel resection Musculoskeletal History: Reports: Gout Endocrine/Metabolic History: Reports: Diabetes, Type II, Hypothyroidism, Obesity /BMI 30+ Oncologic (Cancer) History: Reports: Other (See Below) Other Oncologic History: benign melanoma Dermatologic History: Reports: Benign Melanoma - Infectious Disease History Infectious Disease History: Reports: Chicken Pox, Measles, Mumps - Past Surgical History Head Surgeries/Procedures: Reports: None HEENT Surgical History: Reports: Cataract Surgery Cardiovascular Surgical History: Reports: None Respiratory Surgical History: Reports: None GI Surgical History: Reports: Hernia Repair/Other Endocrine Surgical History: Reports: None Neurological Surgical History: Reports: None Musculoskeletal Surgical History: Reports: None Oncologic Surgical History: Reports: None Dermatological Surgical History: Reports: None Social & Family History - Tobacco Use Smoking Status *Q: Never Smoker Second Hand Smoke Exposure: No - Caffeine Use Caffeine Use: Reports: Soda - Recreational Drug Use Recreational Drug Use: No ED ROS GENERAL - Review of Systems Review Of Systems: See Below Constitutional: Reports: No Symptoms HEENT: Reports: No Symptoms Respiratory: Reports: No Symptoms Cardiovascular: Reports: Syncope GI/Abdominal: Reports: No Symptoms : Reports: No Symptoms ED EXAM, GENERAL - Physical Exam Exam: See Below Exam Limited By: No Limitations General Appearance: Alert, WD/WN, No Apparent Distress Respiratory/Chest: No Respiratory Distress, Lungs Clear, Normal Breath Sounds, No Accessory Muscle Use, Chest Non-Tender Cardiovascular: Regular Rate, Rhythm, No Murmur GI/Abdominal: Soft, Non-Tender Extremities: Pedal Edema Course - Vital Signs Last Recorded V/S: Last Vital Signs Temp 97.1 F 09/18/19 17:34 Pulse 67 09/18/19 19:54 Resp 14 09/18/19 19:54 BP 124/54 L 09/18/19 19:54 Pulse Ox 98 09/18/19 19:54 - Orders/Labs/Meds Orders: Active Orders 24 hr Category Date Time Status Cardiac Monitoring [RC] .As Directed Care 09/18/19 18:10 Active Peripheral IV Care [RC] . DIRECTED Care 09/18/19 18:10 Active UA W/MICROSCOPIC [URIN] Stat Lab 09/18/19 18:10 Ordered Lactated Ringers [Ringers, Lactated] 1,000 ml Med 09/18/19 18:15 Active IV ASDIRECTED Sodium Chloride 0.9% [Saline Flush] Med 09/18/19 18:10 Active 10 ml FLUSH ASDIRECTED PRN Peripheral IV Insertion Adult [OM.PC] Stat Oth 09/18/19 18:10 Ordered Medication Orders Lactated Ringer's (Ringers, Lactated) 1,000 mls @ 999 mls/hr IV ASDIRECTED [facility] Last Admin: 09/18/19 18:33 Dose: 500 mls/hr Sodium Chloride (Saline Flush) 10 ml FLUSH ASDIRECTED PRN PRN Reason: Keep Vein Open Last Admin: 09/18/19 18:33 Dose: 10 ml Labs: Laboratory Tests 09/18/19 09/18/19 Range/Units 18:19 18:19 WBC 11.1 H (4.5-11.0) K/uL RBC 3.15 L (4.30-5.90) M/uL Hgb 9.2 L (12.0-15.0) g/dL Hct 27.6 L (40.0-54.0) % MCV 88 (80-98) fL MCH 29 (27-31) pg MCHC 33 (32-36) % Plt Count 324 (150-400) K/uL Neut % (Auto) 82 H (36-66) % Lymph % (Auto) 8 L (24-44) % Meigs % (Auto) 8 H (2-6) % Eos % (Auto) 2 (2-4) % Baso % (Auto) 0 (0-1) % Sodium 133 L (140-148) mmol/L Potassium 5.1 (3.6-5.2) mmol/L Chloride 96 L (100-108) mmol/L Carbon Dioxide 28 (21-32) mmol/L Anion Gap 14.1 H (5.0-14.0) mmol/L BUN 79 H* (7-18) mg/dL Creatinine 3.8 H* (0.8-1.3) mg/dL Est Cr Clr Drug Dosing 19.48 mL/min Estimated GFR (MDRD) 16 L (>60) Glucose 142 H (74-106) mg/dL Calcium 8.3 L (8.5-10.1) mg/dL Total Bilirubin 0.5 (0.2-1.0) mg/dL AST 62 H (15-37) U/L ALT 84 H (12-78) U/L Alkaline Phosphatase 304 H (46-116) U/L Troponin I < 0.017 (0.000-0.056) ng/mL Total Protein 6.3 L (6.4-8.2) g/dL Albumin 3.2 L (3.4-5.0) g/dL Globulin 3.1 (2.3-3.5) g/dL Albumin/Globulin Ratio 1.0 L (1.2-2.2) Meds: Medications Generic Name Dose Route Start Last Admin Trade Name Freq PRN Reason Stop Dose Admin Lactated Ringer's 1,000 mls @ 999 mls/hr 09/18/19 18:15 09/18/19 18:33 Ringers, Lactated IV 500 mls/hr ASDIRECTED [facility] Administration Sodium Chloride 10 ml 09/18/19 18:10 09/18/19 18:33 Saline Flush FLUSH 10 ml ASDIRECTED PRN Administration Keep Vein Open Departure - Departure Time of Disposition: 20:22 Disposition: Home, Self-Care 01 Condition: Fair Clinical Impression: Hypotension Qualifiers: Hypotension type: hypotension due to drug Qualified Code(s): I95.2 - Hypotension due to drugs Instructions: Hypotension, [id number] Referrals: Prince Caballero MD [Primary Care Provider] - Forms: ED Department Discharge Additional Instructions: Recommend cutting your metoprolol back to 100 mg once a day when you are active in the yard, otherwise stay at 200 mg once a day please follow-up with your primary care in the next 3 to 5 days for reevaluation of your medications call return to the emergency department worsening of symptoms Sepsis Event Note - Evaluation Sepsis Screening Result: No Definite Risk - Focused Exam Vital Signs: Vital Signs Temp Pulse Resp BP Pulse Ox 09/18/19 19:54 67 14 124/54 L 98 09/18/19 18:20 48 L 15 126/54 L 100 09/18/19 18:09 45 L 13 121/57 L 98 09/18/19 17:45 48 L 16 123/51 L 100 09/18/19 17:34 97.1 F 48 L 16 122/45 L 98 09/18/19 17:30 97.1 F 48 L 16 122/45 L 98 Date Exam was Performed: 09/18/19 Time Exam was Performed: 20:21 - My Orders Last 24 Hours: My Active Orders 09/18/19 18:10 Cardiac Monitoring [RC] .As Directed Peripheral IV Care [RC] . DIRECTED UA W/MICROSCOPIC [URIN] Stat Sodium Chloride 0.9% [Saline Flush] 10 ml FLUSH ASDIRECTED PRN Peripheral IV Insertion Adult [OM.PC] Stat 09/18/19 18:15 Lactated Ringers [Ringers, Lactated] 1,000 ml IV ASDIRECTED - Assessment/Plan Last 24 Hours: My Active Orders 09/18/19 18:10 Cardiac Monitoring [RC] .As Directed Peripheral IV Care [RC] . DIRECTED UA W/MICROSCOPIC [URIN] Stat Sodium Chloride 0.9% [Saline Flush] 10 ml FLUSH ASDIRECTED PRN Peripheral IV Insertion Adult [OM.PC] Stat 09/18/19 18:15 Lactated Ringers [Ringers, Lactated] 1,000 ml IV ASDIRECTED Plan: Assessment Acuity = acute Site and laterality = lightheadedness Etiology = secondary to hypotension probably related to metoprolol Manifestations = none Location of injury = Home Lab values = hemoglobin low 9.2 consistent normochromic anemia sodium low at 133 consistent hyponatremia creatinine elevated 3.8 consistent with chronic renal failure stage G4 AST elevated 62 ALT elevated 84 consistent with elevated liver enzymes troponin is negative albumin low 3.2 consistent with hypoalbuminemia Plan He was given 1 L fluids in the ED did feel better I talked to him at length about his metoprolol use he was recently increased to 200 mg once a day he was out working in the yard I think this may have contributed to his low heart rate and low blood pressure I have asked him to cut back on his metoprolol 100 mg once a day when he is going to be active otherwise stay at 200 and please follow -up with his primary care in the next 3 to 5 days for reevaluation This note was dictated using [employer] voice recognition software please call with any questions on syntax or grammar.
[2019-09-18] MEDS ORDERED: Lactated Ringers 1,000 ML IV SCH (18:15)
[2019-09-18 20:34] VITALS: BP 130/67; PULSE 50
== END 2019-09-18 20:53 | disposition home or self-care (01) ==
LOC: JP.ED 16:59
DX: I95.2 Hypotension due to drugs (principal); T50.905A Adverse effect of unspecified drugs, medicaments and biological substances, initial encounter; I10 Essential (primary) hypertension; E11.9 Type 2 diabetes mellitus without complications; E03.9 Hypothyroidism, unspecified; E78.00 Pure hypercholesterolemia, unspecified; M10.9 Gout, unspecified; E66.9 Obesity, unspecified; Z68.32 Body mass index [BMI] 32.0-32.9, adult; Z88.0 Allergy status to penicillin; Z79.4 Long term (current) use of insulin; Z79.82 Long term (current) use of aspirin; Z79.899 Other long term (current) drug therapy
CPT/HCPCS: 36415; 51798; 80053; 84484; 85025; 96360; 96361; 99283; 99284; J7120

== ENCOUNTER 2019-11-16 01:06 | Emergency (ER) | payer MEDICARE ==
--- NOTE | 2019-11-16 02:07 | EDM.PDOC ---
ED HPI GENERAL MEDICAL PROBLEM - General Chief Complaint: Lower Extremity Injury/Pain Stated Complaint: WEAK,CHILLS Time Seen by Provider: 11/16/19 01:45 Source of Information: Reports: Patient, Family, Old Records, RN History Limitations: Reports: No Limitations - History of Present Illness INITIAL COMMENTS - FREE TEXT/NARRATIVE: 69 yo male here with bilateral leg and arm weakness that began a few days ago and has progressed. Had chills earlier today. Is not aware of a fever. Has CRF. No increased SOB. Has neuropathy and AODM(many years). Not able to get up unassisted from a chair now. Here with his . Onset: Gradual Onset Date: 11/13/19 Duration: Day(s): (3+), Getting Worse Location: Reports: Upper Extremity, Left, Upper Extremity, Right, Lower Extremity, Left, Lower Extremity, Right Quality: Reports: Other (no pain reported) Improves with: Reports: None Worsens with: Reports: Other (? time) Context: Reports: Other (See HPI) Associated Symptoms: Reports: Fever/Chills (no definite fever), Malaise. 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: Other (see below) (none) - Related Data Allergies Allergy/AdvReac Type Severity Reaction Status Date / Time amlodipine Allergy Swelling Verified 11/16/19 03:08 amoxicillin [From Augmentin] Allergy Rash Verified 11/16/19 03:08 clavulanic acid Allergy Rash Verified 11/16/19 03:08 [From Augmentin] Penicillins Allergy Hives Verified 11/16/19 01:18 Home Meds: Home Meds Insulin Glarg,Human.Rec.Analog [Lantus Solostar] 25 units SUBCUT BEDTIME 11/02/14 [History] Levothyroxine 200 mcg PO DAILY 11/02/14 [History] Lisinopril 40 mg PO DAILY 11/02/14 [History] Minocycline [Minocin] 100 mg PO DAILY 11/02/14 [History] Amitriptyline [Elavil] 50 mg PO BEDTIME 06/03/19 [History] Aspirin 81 mg PO DAILY 06/03/19 [History] DULoxetine [Cymbalta] 30 mg PO BEDTIME 06/03/19 [History] Furosemide 80 mg PO DAILY 06/03/19 [History] Insulin Aspart [NovoLOG] 10 units SUBCUT WITHLUNCH 06/03/19 [History] Insulin Aspart [NovoLOG] 12 units SUBCUT ACBREAKFAST 06/03/19 [History] Insulin Aspart [NovoLOG] 14 units SUBCUT WITHDINNER 06/03/19 [History] Metoprolol Succinate [Toprol XL] 200 mg PO DAILY 06/03/19 [History] Pravastatin [Pravachol] 40 mg PO BEDTIME 06/03/19 [History] Verapamil HCl [Verapamil ER] 360 mg PO DAILY 06/03/19 [History] cloNIDine [Catapres] 0.2 mg PO Q12HR 06/03/19 [History] hydrALAZINE [Apresoline] 100 mg PO BID 06/03/19 [History] metOLazone [Metolazone] 2.5 mg PO ASDIRECTED 06/03/19 [History] hydrOXYzine pamoate [Hydroxyzine Pamoate] 25 mg PO TID PRN 11/16/19 [History] Past Medical History HEENT History: Reports: Cataract, Impaired Vision Cardiovascular History: Reports: High Cholesterol, Hypertension Respiratory History: Reports: Sleep Apnea Other Respiratory History: cpap Gastrointestinal History: Reports: Other (See Below) Other Gastrointestinal History: small bowel resection Genitourinary History: Reports: Other (See Below) Other Genitourinary History: kidney function is low (20%) Musculoskeletal History: Reports: Gout Endocrine/Metabolic History: Reports: Diabetes, Type II, Hypothyroidism, Obesity/BMI 30+ Oncologic (Cancer) History: Reports: Other (See Below) Other Oncologic History: benign melanoma Dermatologic History: Reports: Benign Melanoma - Infectious Disease History Infectious Disease History: Reports: Chicken Pox, Measles, Mumps - Past Surgical History Head Surgeries/Procedures: Reports: None HEENT Surgical History: Reports: Cataract Surgery Cardiovascular Surgical History: Reports: None Respiratory Surgical History: Reports: None GI Surgical History: Reports: Hernia Repair/Other Male Surgical History: Reports: None Endocrine Surgical History: Reports: None Neurological Surgical History: Reports: None Musculoskeletal Surgical History: Reports: None Oncologic Surgical History: Reports: None Dermatological Surgical History: Reports: None Social & Family History - Family History Family Medical History: Noncontributory - Tobacco Use Smoking Status *Q: Never Smoker - Caffeine Use Caffeine Use: Reports: Coffee - Recreational Drug Use Recreational Drug Use: No Review of Systems - Review of Systems Review Of Systems: See Below Constitutional: Reports: No Symptoms Eyes: Reports: No Symptoms Ears: Reports: No Symptoms Nose: Reports: No Symptoms Mouth/Throat: Reports: No Symptoms Respiratory: Reports: No Symptoms Cardiovascular: Reports: No Symptoms GI/Abdominal: Reports: No Symptoms Genitourinary: Reports: Other (oliguria, not new) Musculoskeletal: Reports: No Symptoms Skin: Reports: No Symptoms Neurological: Reports: Difficulty Walking, Weakness (generalized) Psychiatric: Reports: No Symptoms ED EXAM, GENERAL - Physical Exam Exam: See Below Exam Limited By: No Limitations General Appearance: Alert, WD/WN, No Apparent Distress Eye Exam: Bilateral Eye: Normal Inspection Ears: Normal External Exam, Normal Canal, Hearing Grossly Normal, Normal TMs Ear Exam: Bilateral Ear: Auricle Normal, Canal Normal, TM normal Nose: Normal Inspection, No Blood Throat/Mouth: Normal Inspection, Normal Lips, Normal Oropharynx, Normal Voice, No Airway Compromise Head: Atraumatic, Normocephalic Neck: Normal Inspection Respiratory/Chest: No Respiratory Distress, Lungs Clear, Normal Breath Sounds, No Accessory Muscle Use Cardiovascular: Regular Rate, Rhythm. No: No Edema GI/Abdominal: Normal Bowel Sounds, Soft, Non-Tender, No Distention Back Exam: Normal Inspection. No: CVA Tenderness (R), CVA Tenderness (L) Extremities: Pedal Edema (bilaterally, not worse or new). No: Leg Pain, Increased Warmth, Redness Neurological: Alert, Oriented, CN II-XII Intact, Normal Cognition, No Motor/Sensory Deficits Psychiatric: Normal Affect, Normal Mood Skin Exam: Warm, Dry, Intact, Normal Color, No Rash Course - Vital Signs Last Recorded V/S: Last Vital Signs Temp 37.1 C 11/16/19 01:29 Pulse 67 11/16/19 04:56 Resp 16 11/16/19 04:56 BP 127/70 11/16/19 04:56 Pulse Ox 97 11/16/19 01:29 - Orders/Labs/Meds Orders: Active Orders 24 hr Category Date Time Status Insulin Glarg,Human.Rec.Analog [LantUS Solostar] Med 11/16/19 21:00 Active 25 units SUBCUT BEDTIME Medication Orders Insulin Glargine (Lantus Solostar) 25 units SUBCUT BEDTIME [facility] Last Admin: 11/16/19 03:41 Dose: 25 unit Documented by: CHLOE Cosigned by: UZIEL Labs: Laboratory Tests 11/16/19 11/16/19 11/16/19 Range/Units 02:05 02:05 02:05 WBC 7.9 (4.5-11.0) K/uL RBC 2.69 L (4.30-5.90) M/uL Hgb 7.8 L (12.0-15.0) g/dL Hct 24.3 L (40.0-54.0) % MCV 90 (80-98) fL MCH 29 (27-31) pg MCHC 32 (32-36) % Plt Count 250 (150-400) K/uL Sodium 133 L (140-148) mmol/L Potassium 4.9 (3.6-5.2) mmol/L Chloride 97 L (100-108) mmol/L Carbon Dioxide 27 (21-32) mmol/L Anion Gap 13.9 (5.0-14.0) mmol/L BUN 72 H (7-18) mg/dL Creatinine 4.4 H* (0.8-1.3) mg/dL Est Cr Clr Drug Dosing 16.82 mL/min Estimated GFR (MDRD) 13 L (>60) Glucose 197 H (74-106) mg/dL Calcium 8.0 L (8.5-10.1) mg/dL Magnesium 2.0 (1.8-2.4) mg/dL Total Bilirubin 0.9 D (0.2-1.0) mg/dL AST 32 (15-37) U/L ALT 33 (12-78) U/L Alkaline Phosphatase 190 H (46-116) U/L Troponin I < 0.017 (0.000-0.056) ng/mL Total Protein 6.3 L (6.4-8.2) g/dL Albumin 2.9 L (3.4-5.0) g/dL Globulin 3.4 (2.3-3.5) g/dL Albumin/Globulin Ratio 0.9 L (1.2-2.2) TSH, Ultra Sensitive 0.690 (0.358-3.740) uIU/mL Urine Color (YELLOW) Urine Appearance (CLEAR) Urine pH (5.0-8.0) Ur Specific [place] (1.008-1.030) Urine Protein (NEGATIVE) mg/dL Urine Glucose (UA) (NEGATIVE) mg/dL Urine Ketones (NEGATIVE) mg/dL Urine Occult Blood (NEGATIVE) Urine Nitrite (NEGATIVE) Urine Bilirubin (NEGATIVE) Urine Urobilinogen (0.2-1.0) EU/dL Ur Leukocyte Esterase (NEGATIVE) Urine RBC (0-5) Urine WBC (0-5) Ur Epithelial Cells Amorphous Sediment Urine Bacteria Urine Mucus 11/16/19 Range/Units 04:47 WBC (4.5-11.0) K/uL RBC (4.30-5.90) M/uL Hgb (12.0-15.0) g/dL Hct (40.0-54.0) % MCV (80-98) fL MCH (27-31) pg MCHC (32-36) % Plt Count (150-400) K/uL Sodium (140-148) mmol/L Potassium (3.6-5.2) mmol/L Chloride (100-108) mmol/L Carbon Dioxide (21-32) mmol/L Anion Gap (5.0-14.0) mmol/L BUN (7-18) mg/dL Creatinine (0.8-1.3) mg/dL Est Cr Clr Drug Dosing mL/min Estimated GFR (MDRD) (>60) Glucose (74-106) mg/dL Calcium (8.5-10.1) mg/dL Magnesium (1.8-2.4) mg/dL Total Bilirubin (0.2-1.0) mg/dL AST (15-37) U/L ALT (12-78) U/L Alkaline Phosphatase (46-116) U/L Troponin I (0.000-0.056) ng/mL Total Protein (6.4-8.2) g/dL Albumin (3.4-5.0) g/dL Globulin (2.3-3.5) g/dL Albumin/Globulin Ratio (1.2-2.2) TSH, Ultra Sensitive (0.358-3.740) uIU/mL Urine Color Yellow (YELLOW) Urine Appearance Clear (CLEAR) Urine pH 5.5 (5.0-8.0) Ur Specific [place] 1.020 (1.008-1.030) Urine Protein 100 H (NEGATIVE) mg/dL Urine Glucose (UA) Negative (NEGATIVE) mg/dL Urine Ketones Negative (NEGATIVE) mg/dL Urine Occult Blood Negative (NEGATIVE) Urine Nitrite Negative (NEGATIVE) Urine Bilirubin Negative (NEGATIVE) Urine Urobilinogen 0.2 (0.2-1.0) EU/dL Ur Leukocyte Esterase Negative (NEGATIVE) Urine RBC 0-5 (0-5) Urine WBC 0-5 (0-5) Ur Epithelial Cells Few Amorphous Sediment Rare Urine Bacteria Few Urine Mucus Not seen Meds: Medications Generic Name Dose Route Start Last Admin Trade Name Freq PRN Reason Stop Dose Admin Insulin Glargine 25 units 11/16/19 21:00 11/16/19 03:41 Lantus Solostar SUBCUT 25 unit BEDTIME [facility] Administration Discontinued Medications Generic Name Dose Route Start Last Admin Trade Name Freq PRN Reason Stop Dose Admin Sodium Chloride 1,000 mls @ 1,000 mls/hr 11/16/19 03:11 11/16/19 03:23 Normal Saline IV 11/16/19 04:10 1,000 mls/hr .BOLUS ONE Administration Insulin Glargine Confirm 11/16/19 03:37 11/16/19 03:43 Lantus Solostar Administered 11/16/19 03:38 Not Given Dose 300 units .ROUTE .STK-MED ONE - Re-Assessments/Exams Free Text/Narrative Re-Assessment/Exam: 11/16/19 05:33 Is able to walk after IV fluids. Was given a walker to aid with safe ambulation. Departure - Departure Time of Disposition: 05:35 Disposition: Home, Self-Care 01 Condition: Fair Clinical Impression: Mild dehydration, Anemia in stage 5 chronic kidney disease, not on chronic dialysis, Worsening renal function, Weakness Clinical Impression: (Ruled Out): Anemia due to stage 4 chronic kidney disease - Discharge Information *PRESCRIPTION DRUG MONITORING PROGRAM REVIEWED*: Not Applicable *COPY OF PRESCRIPTION DRUG MONITORING REPORT IN PATIENT SHELIA: Not Applicable Referrals: Prince Caballero MD [Primary Care Provider] - Forms: ED Department Discharge Additional Instructions: Continue your current medications. Talk to your applied statistician first thing Monday morning. Use the walker to aid with safe ambulation. Sepsis Event Note (ED) - Evaluation Sepsis Screening Result: No Definite Risk - Focused Exam Vital Signs: Vital Signs Temp Pulse Resp BP Pulse Ox 11/16/19 04:56 67 16 127/70 11/16/19 03:00 78 18 152/64 H 11/16/19 01:29 37.1 C 75 18 150/54 H 97 - My Orders Last 24 Hours: My Active Orders 11/16/19 21:00 Insulin Glarg,Human.Rec.Analog [LantUS Solostar] 25 units SUBCUT BEDTIME - Assessment/Plan Last 24 Hours: My Active Orders 11/16/19 21:00 Insulin Glarg,Human.Rec.Analog [LantUS Solostar] 25 units SUBCUT BEDTIME
[2019-11-16] MEDS ORDERED: Sodium Chloride 0.9% 1,000 ML IV ONE (03:11)
[2019-11-16] MEDS ORDERED: Insulin Glargine,Human Rec. Analog 100 Units/ML 3 ML Pen ONE (03:37)
[2019-11-16 04:57] VITALS: BP 127/70; PULSE 67
[2019-11-16] MEDS ORDERED: Insulin Glargine,Human Rec. Analog 100 Units/ML 3 ML Pen SUBCUT SCH (21:00)
== END 2019-11-16 05:55 | disposition home or self-care (01) ==
LOC: JP.ED 01:06
DX: I12.0 Hypertensive chronic kidney disease with stage 5 chronic kidney disease or end stage renal disease (principal); E11.22 Type 2 diabetes mellitus with diabetic chronic kidney disease; N18.5 Chronic kidney disease, stage 5; D63.1 Anemia in chronic kidney disease; E86.0 Dehydration; E78.00 Pure hypercholesterolemia, unspecified; E03.9 Hypothyroidism, unspecified; E66.9 Obesity, unspecified; Z88.1 Allergy status to other antibiotic agents; Z88.0 Allergy status to penicillin; Z79.82 Long term (current) use of aspirin; Z79.899 Other long term (current) drug therapy; Z79.4 Long term (current) use of insulin; Z68.33 Body mass index [BMI] 33.0-33.9, adult
CPT/HCPCS: 36415; 51798; 80053; 81001; 82272; 83735; 84443; 84484; 85027; 96360; 99284; J1815; J7030

== ENCOUNTER 2020-08-31 06:34 | Day surgery (SDC) | payer MEDICARE ==
[2020-08-31] MEDS ORDERED: Sodium Chloride 0.9% 1,000 ML IV SCH (07:00)
[2020-08-31] MEDS ORDERED: fentaNYL 100 MCG/2 ML SDV ONE (07:19)
[2020-08-31] MEDS ORDERED: Midazolam 1 MG/ML 2 ML SDV ONE (07:19)
[2020-08-31] MEDS ORDERED: Propofol 200 MG/20 ML SDV ONE (07:19)
[2020-08-31 10:04] VITALS: BP 118/39; PULSE 54
--- NOTE | 2020-08-31 12:25 | OR ---
DATE OF PROCEDURE: 08/31/2020 SURGEON: Antony Lipscomb MD PROCEDURE: Esophagogastroduodenoscopy. FINDINGS: 1. No definitive etiology of blood loss. 2. Mild gastritis in gastric antrum associated with a prominent distal gastric antrum fold (biopsied using cold biopsy forceps). 3. Small tag-like lesion x2 in distal esophagus in the background of probable gastroesophageal reflux disease (both biopsied using cold biopsy forceps in conjunction with the GE junction). COMPLICATIONS: None. [employer] SYSTEMS ADMINISTRATOR: None. ANESTHESIA: MAC. PREOPERATIVE DIAGNOSIS: History of gastrointestinal bleed. POSTOPERATIVE DIAGNOSIS: History of gastrointestinal bleed. RISKS: Risks, benefits, alternatives, and limitations including, but not limited to, infection, bleeding, perforation, false positives and false negatives were explained to the patient who wished to proceed. PROCEDURE IN DETAIL: The patient was placed in left lateral decubitus position. The EGD scope was introduced and advanced atraumatically to the second part of the duodenum. Within the duodenum, there was no evidence of duodenitis or ulceration. No abnormalities in the duodenal bulb. Within the stomach at the junction of the antrum and the duodenum, the patient had a prominent fold which had either gastritis or healing ulcer associated with this. This would not be a significant blood-loss site. This was biopsied using cold biopsy forceps. On retroflexion, no other ulceration or gastritis. The GE junction showed some small, less than 1 cm, salmon-colored irregularity concerning for reflux disease. Associated to this were 2 tag-like protrusions less than 5 mm each. These were also biopsied using cold biopsy forceps. These were not consistent with varicosities. The patient did not have any significant varicosities noted at the GE junction. The remainder of the esophagus was inspected without abnormality. The patient tolerated the procedure well. Antony Lipscomb MD /[id number]
== END 2020-08-31 10:30 | disposition home or self-care (01) ==
LOC: JP.SDS 06:34
PROVIDERS: ATTEND Surgery
DX: K29.00 Acute gastritis without bleeding (principal); K22.8 Other specified diseases of esophagus; I12.9 Hypertensive chronic kidney disease with stage 1 through stage 4 chronic kidney disease, or unspecified chronic kidney disease; E11.22 Type 2 diabetes mellitus with diabetic chronic kidney disease; N18.4 Chronic kidney disease, stage 4 (severe); E78.5 Hyperlipidemia, unspecified; E03.9 Hypothyroidism, unspecified; G47.33 Obstructive sleep apnea (adult) (pediatric); Z87.19 Personal history of other diseases of the digestive system
CPT/HCPCS: 43239; J2250; J2704; J3010; J7030

== ENCOUNTER 2021-02-17 19:00 | Emergency (ER) | payer BC, MEDICARE ==
[2021-02-17] MEDS ORDERED: Sodium Chloride 0.9% 10 ML Syringe FLUSH PRN (20:23)
[2021-02-17] MEDS ORDERED: Sodium Chloride 0.9% 1,000 ML IV SCH (22:00)
--- NOTE | 2021-02-18 00:33 | EDM.PDOC ---
ED HPI GENERAL MEDICAL PROBLEM - General Chief Complaint: Cardiovascular Problem Stated Complaint: LOW BLOOD PRESSURE/WEAKNESS Time Seen by Provider: 02/17/21 20:01 Source of Information: Reports: Patient History Limitations: Reports: No Limitations - History of Present Illness INITIAL COMMENTS - FREE TEXT/NARRATIVE: Jam is a 70-year-old male presenting to the ED for evaluation of hypotension and repeated falls today. Patient has a history of end-stage renal disease and is on peritoneal dialysis daily. He reports that his pressures have been steadily going down with systolic pressure of 74 mmHg at home today. They recently increased his salient solution for his peritoneal dialysis as it is becoming less and less effective at removing his waist. They have also increa sed his frequency of the run time to 5 cycles over 10 hours daily. The patient is followed by Dr. Germain in nephrology at [facility] in [place]. In reviewing the records from their facility it appears that if Jam does not improve with the peritoneal dialysis the next step would be hemodialysis. Jam stokes previously was on hemodialysis before starting peritoneal dialysis and has a shunt in his left forearm. Patient denies any significant injury with his falls today but generally he ambulates with the use of a motorized wheelchair and was too weak to stand up out of the wheelchair today causing the falls. - Related Data Allergies Allergy/AdvReac Type Severity Reaction Status Date / Time amlodipine Allergy Swelling Verified 02/17/21 19:45 amoxicillin [From Augmentin] Allergy Rash Verified 02/17/21 19:45 clavulanic acid Allergy Rash Verified 02/17/21 19:45 [From Augmentin] Penicillins Allergy Hives Verified 02/17/21 19:45 hydroxyzine AdvReac Confusion Verified 02/17/21 19:45 Home Meds: Home Meds Levothyroxine 300 mcg PO DAILY 11/02/14 [History] Aspirin 81 mg PO DAILY 06/03/19 [History] DULoxetine [Cymbalta] 30 mg PO BEDTIME 06/03/19 [History] Pravastatin [Pravachol] 40 mg PO BEDTIME 06/03/19 [History] Verapamil HCl [Verapamil ER] 180 mg PO BID 06/03/19 [History] Betamethasone Valerate [Valisone 0.1% Oint] 1 applic TOP BID 08/28/20 [History] Calcium Acetate [PhosLo] 1,334 mg PO TIDMEALS 08/28/20 [History] Doxepin [SINEquan] 10 - 20 mg PO BEDTIME 08/28/20 [History] Triamcinolone Acetonide [Triamcinolone Acetonide 0.5%] 1 applic TOP ASDIRECTED 08/28/20 [History] calcitrioL [Calcitriol] 0.25 mcg PO .MWF 08/28/20 [History] carvediloL [Coreg] 25 mg PO BIDMEALS 08/28/20 [History] Gentamicin [Gentamicin 0.1%] 15 gm TOP DAILY 02/17/21 [History] Insulin Lispro [HumaLOG] 14 - 20 units SUBCUT ASDIRECTED 02/17/21 [History] Pregabalin [Lyrica] 100 mg PO BID 02/17/21 [History] Past Medical History HEENT History: Reports: Cataract, Impaired Vision, Other (See Below) Other HEENT History: glasses Cardiovascular History: Reports: High Cholesterol, Hypertension Respiratory History: Reports: Sleep Apnea Other Respiratory History: cpap Gastrointestinal History: Reports: Other (See Below) Other Gastrointestinal History: small bowel resection Genitourinary History: Reports: Dialysis, Peritoneal, Renal Disease, Other (See Below) Other Genitourinary History: kidney function is low (20%) stage 4 Musculoskeletal History: Reports: Gout Endocrine/Metabolic History: Reports: Diabetes, Type II, Hypothyroidism, Obesity/BMI 30+ Hematologic History: Reports: Anemia Oncologic (Cancer) History: Reports: Other (See Below) Other Oncologic History: benign melanoma Dermatologic History: Reports: Benign Melanoma - Infectious Disease History Infectious Disease History: Reports: Chicken Pox, Measles, Mumps - Past Surgical History Head Surgeries/Procedures: Reports: None HEENT Surgical History: Reports: Cataract Surgery Cardiovascular Surgical History: Reports: None Respiratory Surgical History: Reports: None GI Surgical History: Reports: Cholecystectomy, Hernia Repair/Other Male Surgical History: Reports: None Endocrine Surgical History: Reports: None Neurological Surgical History: Reports: None Musculoskeletal Surgical History: Reports: None Oncologic Surgical History: Reports: None Dermatological Surgical History: Reports: None Social & Family History - Family History Family Medical History: No Pertinent Family History HEENT: Reports: None Cardiac: Reports: None - Tobacco Use Tobacco Use Status *Q: Never Tobacco User - Caffeine Use Caffeine Use: Reports: Coffee, Soda - Recreational Drug Use Recreational Drug Use: No ED ROS GENERAL - Review of Systems Review Of Systems: See Below Constitutional: Reports: Malaise, Weakness, Decreased Appetite HEENT: Reports: No Symptoms Respiratory: Reports: Pleuritic Chest Pain (Radiating to his left arm with deep breathing) Cardiovascular: Reports: No Symptoms Endocrine: Reports: Fatigue GI/Abdominal: Reports: No Symptoms : Reports: Other (Oliguria) Musculoskeletal: Reports: No Symptoms Skin: Reports: Dryness (With uremic mcgovern), Wound (Abrasion on the dorsal right forearm) Neurological: Reports: Weakness (Generalized weakness) Psychiatric: Reports: No Symptoms Hematologic/Lymphatic: Reports: Anemia Immunologic: Reports: No Symptoms ED EXAM, GENERAL - Physical Exam Exam: See Below Exam Limited By: No Limitations General Appearance: Alert, Anxious, Mild Distress Eye Exam: Bilateral Eye: EOMI, PERRL Throat/Mouth: Normal Inspection, Normal Voice, No Airway Compromise, Other (Dry mucous membranes with fetid breath) Head: Atraumatic, Normocephalic Neck: Supple, Non-Tender Respiratory/Chest: No Respiratory Distress, Lungs Clear, Normal Breath Sounds, No Accessory Muscle Use Cardiovascular: Normal Peripheral Pulses, Regular Rate, Rhythm, No Murmur Peripheral Pulses: 2+: Radial (L), Radial (R) GI/Abdominal: Normal Bowel Sounds, Soft, Non-Tender, Distended, Other (Tympany to percussion throughout the abdomen) Extremities: Other (Mild chronic lymphedema bilateral lower extremities) Neurological: Alert, Oriented, Normal Cognition, No Motor/Sensory Deficits Psychiatric: Normal Affect, Normal Mood Skin Exam: Other (Significantly dry skin almost to the point of ichthyosis. There is a uremic mcgovern on the skin. Very poor skin turgor.) Lymphatic: No Adenopathy Course - Vital Signs Last Recorded V/S: Last Vital Signs Temp 37.0 C 02/18/21 01:09 Pulse 80 02/18/21 01:09 Resp 13 02/18/21 01:09 BP 96/51 L 02/18/21 01:09 Pulse Ox 100 02/18/21 01:09 - Orders/Labs/Meds Orders: Active Orders 24 hr Category Date Time Status Sodium Chloride 0.9% [Normal Saline] 1,000 ml Med 02/17/21 22:00 Active IV ASDIRECTED Sodium Chloride 0.9% [Saline Flush] Med 02/17/21 20:23 Active 10 ml FLUSH ASDIRECTED PRN Saline Lock Insert [OM.PC] Routine Oth 02/17/21 20:23 Ordered Medication Orders Sodium Chloride (Normal Saline) 1,000 mls @ 999 mls/hr IV ASDIRECTED INNA Last Admin: 02/17/21 22:04 Dose: 999 mls/hr Documented by: DARRELL Sodium Chloride (Sodium Chloride 0.9% 10 Ml Syringe) 10 ml FLUSH ASDIRECTED PRN PRN Reason: Keep Vein Open Last Admin: 02/17/21 20:30 Dose: 10 ml Documented by: DARRELL Labs: Laboratory Tests 02/17/21 02/17/21 02/17/21 Range/Units 20:32 20:32 20:35 WBC 10.9 (4.5-11.0) K/uL RBC 2.80 L (4.30-5.90) M/uL Hgb 9.3 L (12.0-15.0) g/dL Hct 27.2 L (40.0-54.0) % MCV 97 (80-98) fL MCH 33 H (27-31) pg MCHC 34 (32-36) % Plt Count 173 (150-400) K/uL Neut % (Auto) 81.7 H (36-66) % Lymph % (Auto) 7.4 L (24-44) % Fergus % (Auto) 7.3 H (2-6) % Eos % (Auto) 3.1 (2-4) % Baso % (Auto) 0.5 (0-1) % Sodium (140-148) mmol/L Potassium (3.6-5.2) mmol/L Chloride (100-108) mmol/L Carbon Dioxide (21-32) mmol/L Anion Gap (5.0-14.0) mmol/L BUN (7-18) mg/dL Creatinine (0.8-1.3) mg/dL Est Cr Clr Drug Dosing mL/min Estimated GFR (MDRD) (>60) Glucose (74-106) mg/dL Lactic Acid (0.4-2.0) mmol/L Uric Acid 10.8 H (3.5-7.2) mg/dL Calcium (8.5-10.1) mg/dL Phosphorus 5.8 H (2.5-4.9) mg/dL Total Bilirubin (0.2-1.0) mg/dL AST (15-37) U/L ALT (12-78) U/L Alkaline Phosphatase (46-116) U/L Total Protein (6.4-8.2) g/dL Albumin (3.4-5.0) g/dL Globulin (2.3-3.5) g/dL Albumin/Globulin Ratio (1.2-2.2) SARS-CoV-2 RNA (MANOLO) (NEGATIVE) 02/17/21 02/17/21 02/18/21 Range/Units 20:35 20:35 00:07 WBC (4.5-11.0) K/uL RBC (4.30-5.90) M/uL Hgb (12.0-15.0) g/dL Hct (40.0-54.0) % MCV (80-98) fL MCH (27-31) pg MCHC (32-36) % Plt Count (150-400) K/uL Neut % (Auto) (36-66) % Lymph % (Auto) (24-44) % Fergus % (Auto) (2-6) % Eos % (Auto) (2-4) % Baso % (Auto) (0-1) % Sodium 138 L (140-148) mmol/L Potassium 3.3 L (3.6-5.2) mmol/L Chloride 98 L (100-108) mmol/L Carbon Dioxide 25 (21-32) mmol/L Anion Gap 18.3 H (5.0-14.0) mmol/L BUN 75 H (7-18) mg/dL Creatinine 9.9 H* D (0.8-1.3) mg/dL Est Cr Clr Drug Dosing 7.37 mL/min Estimated GFR (MDRD) 5 L (>60) Glucose 55 L (74-106) mg/dL Lactic Acid 0.7 (0.4-2.0) mmol/L Uric Acid (3.5-7.2) mg/dL Calcium 7.2 L (8.5-10.1) mg/dL Phosphorus (2.5-4.9) mg/dL Total Bilirubin 4.9 H D (0.2-1.0) mg/dL AST 83 H D (15-37) U/L ALT 65 D (12-78) U/L Alkaline Phosphatase 560 H D (46-116) U/L Total Protein 5.8 L (6.4-8.2) g/dL Albumin 1.7 L (3.4-5.0) g/dL Globulin 4.1 H (2.3-3.5) g/dL Albumin/Globulin Ratio 0.4 L (1.2-2.2) SARS-CoV-2 RNA (MANOLO) Negative (NEGATIVE) Meds: Medications Generic Name Dose Route Start Last Admin Trade Name Freq PRN Reason Stop Dose Admin Sodium Chloride 1,000 mls @ 999 mls/hr 02/17/21 22:00 02/17/21 22:04 Normal Saline IV 999 mls/hr ASDIRECTED INNA Administration Sodium Chloride 10 ml 02/17/21 20:23 02/17/21 20:30 Sodium Chloride 0.9% 10 Ml Syringe FLUSH 10 ml ASDIRECTED PRN Administration Keep Vein Open - Re-Assessments/Exams Free Text/Narrative Re-Assessment/Exam: 02/18/21 00:36 I reviewed the patient's labs showing a leukocyte count of 10.9, hemoglobin of 9.3 with a hematocrit of 27.2 and a platelet count of 173,000. What is worrisome as the patient's hemoglobin is dropped from 10.3 on 02/12/2021 to 9.3 today. His comprehensive metabolic panel shows a sodium 138, potassium 3.3, chloride of 98, bicarbonate of 25, BUN of 75 with a creatinine of 9.9 and a glucose of 55. The BUN and creatinine of significantly increased since his last nephrology visit on 917 where his creatinine was 7.5. The rest of the comprehensive metabolic panel shows a bilirubin of 4.9, AST of 83, ALT of 65, alkaline phosphatase of 560, total protein of 5.8 with an albumin of 1.7. His calcium is 7.2 with a uric acid of 10.8 and a phosphorus of 5.8. During his [facility] nephrology visit, there was mention that the patient was likely going to need hemodialysis if not improving with the peritoneal dialysis. I think the today clearly shows that he has continued to worsen and likely needs hemodialysis. I did discuss the case with the triage nurse at [facility], [place] states that they have no beds available at this time and cannot accept the patient in transfer there. We did discuss whether [facility] may have hemodialysis. I did discuss the case with Keyonna, triage nurse for [facility] and they to do not have any bed availability for the patient. It appears that in addition to that they do not have availability of the precision lathe operator to do hemodialysis either today, tomorrow, or Monday as he is in the out reach clinic. The patient requested that I reach out to [facility] in [place] which also does hemodialysis. [facility] does not have any bed availability nor do they do hemodialysis in the hospital. I discussed the case with the triage nurse at [facility]. Again no bed availability. I discussed the case with the transfer nurse at [facility] in [place]. They do not do hemodialysis. I discussed the case with the transfer nurse at [facility] in [place]. Again they had no beds available but did put the patient on a wait list. I discussed the case with the transfer nurse at [facility] in [place]. They also do not have any bed availability. I discussed this with the patient and his and they wanted me to call the peritoneal dialysis nurse Radha. I talked to Radha about the patient's situation and labs and the need for hemodialysis. She will get a hold of the precision lathe operator at [facility] and try to arrange for the patient to have hemodialysis there tomorrow. I discussed this with family and they would like to go home at this time and follow-up with Radha in the morning. 02/18/21 01:56 Indications to return to the ED were discussed. Departure - Departure Time of Disposition: 01:59 Disposition: Home, Self-Care 01 Clinical Impression: Chronic kidney disease, stage V requiring chronic dialysis, Ultrafiltration failure of peritoneal dialysis, Dehydration, Uremia of renal origin Hypotension Qualifiers: Hypotension type: hypotension due to drug Qualified Code(s): I95.2 - Hypotension due to drugs Instructions: Dehydration, Adult, [id number], End-Stage Kidney Disease, Hypotension Referrals: Prince Caballero MD [Primary Care Provider] - Forms: ED Department Discharge Care Plan Goals: Follow-up with Radha in the morning to see about arranging for hemodialysis. If you become hypotensive again please return to the ED for reevaluation. Sepsis Event Note (ED) - Evaluation Sepsis Screening Result: No Definite Risk - Focused Exam Vital Signs: Vital Signs Temp Pulse Resp BP Pulse Ox 02/18/21 01:09 37.0 C 80 13 96/51 L 100 02/17/21 22:58 77 13 121/61 99 02/17/21 22:29 78 14 133/52 L 99 02/17/21 22:03 78 15 117/55 L 99 02/17/21 21:39 74 11 L 106/57 L 99 02/17/21 20:47 74 12 130/55 L 99 02/17/21 19:32 37.0 C 69 16 108/52 L 97 02/17/21 19:19 37.0 C 69 16 108/52 L 97 - Problem List & Annotations (1) Chronic kidney disease, stage V requiring chronic dialysis SNOMED Code(s): 894526499 Code(s): N18.6 - END STAGE RENAL DISEASE; Z99.2 - DEPENDENCE ON RENAL DIALYSIS Status: Chronic Priority: High Current Visit: Yes (2) Dehydration SNOMED Code(s): 06337401 Code(s): E86.0 - DEHYDRATION Status: Acute Priority: High Current Visit: Yes (3) Ultrafiltration failure of peritoneal dialysis SNOMED Code(s): 229104329 Code(s): Z53.8 - PROCEDURE AND TREATMENT NOT CARRIED OUT FOR OTHER REASONS Status: Chronic Priority: High Current Visit: Yes (4) Uremia of renal origin SNOMED Code(s): 02340273 Code(s): N19 - UNSPECIFIED KIDNEY FAILURE Status: Chronic Priority: High Current Visit: Yes (5) Hypotension SNOMED Code(s): 74503816 Code(s): I95.9 - HYPOTENSION, UNSPECIFIED Status: Acute Priority: High Current Visit: Yes Qualifiers: Hypotension type: hypotension due to hypovolemia Qualified Code(s): I95.89 - Other hypotension; E86.1 - Hypovolemia - Problem List Review Problem List Initiated/Reviewed/Updated: Yes - My Orders Last 24 Hours: My Active Orders 02/17/21 20:23 Sodium Chloride 0.9% [Saline Flush] 10 ml FLUSH ASDIRECTED PRN Saline Lock Insert [OM.PC] Routine 02/17/21 22:00 Sodium Chloride 0.9% [Normal Saline] 1,000 ml IV ASDIRECTED - Assessment/Plan Last 24 Hours: My Active Orders 02/17/21 20:23 Sodium Chloride 0.9% [Saline Flush] 10 ml FLUSH ASDIRECTED PRN Saline Lock Insert [OM.PC] Routine 02/17/21 22:00 Sodium Chloride 0.9% [Normal Saline] 1,000 ml IV ASDIRECTED
[2021-02-18 01:12] VITALS: BP 96/51; PULSE 80
== END 2021-02-18 02:12 | disposition home or self-care (01) ==
LOC: JP.ED 19:00
DX: I95.2 Hypotension due to drugs (principal); T50.905A Adverse effect of unspecified drugs, medicaments and biological substances, initial encounter; I12.9 Hypertensive chronic kidney disease with stage 1 through stage 4 chronic kidney disease, or unspecified chronic kidney disease; E11.22 Type 2 diabetes mellitus with diabetic chronic kidney disease; N18.4 Chronic kidney disease, stage 4 (severe); E86.0 Dehydration; E78.00 Pure hypercholesterolemia, unspecified; E03.9 Hypothyroidism, unspecified; E66.9 Obesity, unspecified; Z68.30 Body mass index [BMI] 30.0-30.9, adult; Z99.2 Dependence on renal dialysis; Z88.0 Allergy status to penicillin; Z88.8 Allergy status to other drugs, medicaments and biological substances; Z79.899 Other long term (current) drug therapy
CPT/HCPCS: 36415; 80053; 83605; 84100; 84550; 85025; 99284; J7030; U0002

== ENCOUNTER 2021-05-20 09:05 | Day surgery (SDC) | payer MEDICARE ==
[~2021-05-20 09:05] MED LIST: Midazolam 1 MG/ML 2 ML SDV ONE; Propofol 200 MG/20 ML SDV ONE; fentaNYL 100 MCG/2 ML SDV ONE
[2021-05-20] MEDS ORDERED: Sodium Chloride 0.9% 1,000 ML IV SCH (09:30)
[2021-05-20] MEDS ORDERED: Propofol 200 MG/20 ML SDV ONE (10:27)
[2021-05-20 11:24] VITALS: PULSE 70
--- NOTE | 2021-05-20 12:52 | OR ---
DATE OF PROCEDURE: 05/20/2021 SURGEON: Antony Lipscomb MD PROCEDURE: Colonoscopy. FINDINGS: 1. Ascending colon polyp #1, approximately 5 mm, completely removed using cold biopsy forceps. 2. Ascending colon polyp #2, approximately 8 mm, completely removed using hot snare wire device. 3. Ascending colon polyp #3, approximately 8 mm, completely removed using hot snare wire device. 4. Ascending colon polyp #4, approximately 5 mm, completely removed using cold biopsy forceps. 5. Transverse colon polyp #1, approximately 8 mm, completely removed using hot snare wire device. 6. Transverse colon polyp #2, approximately 1 cm, completely removed using hot snare wire device. 7. Transverse colon polyp #3, approximately 8 mm, completely removed using hot snare wire device. 8. Transverse colon polyp #4, approximately 5 mm, completely removed using cold biopsy forceps. 9. Transverse colon polyp #5, approximately 8 mm, completely removed using hot snare wire device. 10.Ascending colon polyp #1, approximately 8 mm, completely removed using hot snare wire device. 11.Sigmoid colon polyp #1, approximately 5 mm, completely removed using cold biopsy forceps. 12.Poor colon prep. 13.Tortuous colon. COMPLICATION: None. KARATE TEACHER: None. ANESTHESIA: MAC. PREOPERATIVE DIAGNOSIS: Screening colonoscopy. POSTOPERATIVE DIAGNOSIS: Screening colonoscopy. RISKS: Risks, benefits, alternatives, and limitations including, but not limited to infection, bleeding, perforation, false positives and false negatives were all explained to the patient who wished to proceed. PROCEDURE IN DETAIL: The patient was placed in left lateral decubitus position. Digital rectal exam was performed without abnormality. Scope was introduced and advanced atraumatically to the ileocecal valve. 12 polyps were removed using the method as described above. The patient was noted to have tortuous colon in the descending colon. His prep was also poor. These polyps were removed as described above. No other abnormalities noted. The patient tolerated procedure well. No abnormalities on retroflexion. Greater than 8 minutes was spent removing the scope. Prep was not acceptable with less than 70% luminal surface could be seen. The patient will be scheduled for repeat colonoscopy. Antony Lipscomb MD /[id number]
[2021-05-20 14:42] VITALS: BP 136/72
== END 2021-05-20 12:10 | disposition home or self-care (01) ==
LOC: JP.SDS 09:05
PROVIDERS: ATTEND Surgery
DX: Z12.11 Encounter for screening for malignant neoplasm of colon (principal); D12.2 Benign neoplasm of ascending colon; D12.3 Benign neoplasm of transverse colon; D12.4 Benign neoplasm of descending colon; D12.5 Benign neoplasm of sigmoid colon; G47.33 Obstructive sleep apnea (adult) (pediatric); I12.9 Hypertensive chronic kidney disease with stage 1 through stage 4 chronic kidney disease, or unspecified chronic kidney disease; E78.5 Hyperlipidemia, unspecified; N18.4 Chronic kidney disease, stage 4 (severe); E11.22 Type 2 diabetes mellitus with diabetic chronic kidney disease
CPT/HCPCS: 45380; 45385; 88305; J2704; J3010; J7030; J2250

== ENCOUNTER 2021-11-24 17:51 | Emergency (ER) | payer MEDICARE ==
[2021-11-24 18:02] VITALS: BP 121/60; PULSE 83
[2021-11-24 19:00] LABS: ESTIMATED GFR 17 mL/min (>60)
== END 2021-11-24 20:01 | disposition home or self-care (01) ==
LOC: JP.ED 17:51
DX: K94.03 Colostomy malfunction (principal); E78.00 Pure hypercholesterolemia, unspecified; I10 Essential (primary) hypertension; E11.9 Type 2 diabetes mellitus without complications; E03.9 Hypothyroidism, unspecified; M10.9 Gout, unspecified; E66.9 Obesity, unspecified; Z88.0 Allergy status to penicillin; Z88.8 Allergy status to other drugs, medicaments and biological substances; Z79.82 Long term (current) use of aspirin; Z79.899 Other long term (current) drug therapy; Z98.890 Other specified postprocedural states; Z68.1 Body mass index [BMI] 19.9 or less, adult
CPT/HCPCS: 36415; 80053; 82140; 85025; 99283